=== PATIENT | female | born 1985 | race American Indian/Alaskan Native ===

== ENCOUNTER 2018-07-22 03:13 | Inpatient (IN) | payer SELFPAY ==
--- NOTE | 2018-07-22 03:23 | ED PDOC ---
Psych Transfer Clearance - Clearance Statement Clearance Statement: Reviewed vital signs, lab results and transfer papers. Patient clinically stable for psychiatric admission.
[2018-07-22 03:27] VITALS: O2SAT 99
[2018-07-22] MEDS ORDERED: Magnesium Hydroxide Susp 30 ml UD PO PRN (03:47)
[2018-07-22] MEDS ORDERED: Alum-Mag Hydrox-Simethicone Susp (30 mL) PO PRN (03:47)
[2018-07-22] MEDS ORDERED: DiphenhydrAMINE 50 mg/ml Inj IM PRN (03:47)
--- NOTE | 2018-07-22 04:15 | PCM.BM ---
<Sharmin Berman Joelle - Last Filed: 07/22/18 04:13> Treatment Plan Problems - Problems identified on initial assessmt delusions Date Initiated: 07/22/18 Time Initiated: 04:13 Assessment reference: NA Status: Active Altered sleep pattern Date Initiated: 07/22/18 Time Initiated: 04:14 Assessment reference: NA Status: Active Treatment assets and liabiliti Patient Assests: cooperative, educated, ADL independent, physically healthy, good support system, negotiates basic needs - Milieu Protocol Maintain good personal hygiene: daily Encourage regular showers, other Remind patient to perform daily oral care (prn), other Assist patient to perform ADL's (prn) Conduct patient checks and document Observation sheet: Q15 minutes Maintain personal safety: every shift Educate patient to report safety concerns to staff, every shift Monitor environment for contraband/sharps Medication safety: Monitor for expected outcome, potential side effects: every shift, Assess barriers to learning: every shift, Assess readiness for medication education: every shift <Daisy Lynne - Last Filed: 07/24/18 15:28> Treatment assets and liabiliti Patient Assests: adapts well, cooperative, educated (Pt. 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 ), resourceful, self-reliant, ADL independent, physically healthy, good support system (Pt. reports having a loving and supportive relationship with parents () and friends. ), cognitively intact, good interpersonal skills Patient Liabilities: live alone, relationship conflicts (Pt. reported returning from a trip to [place] on 07/01 and being unable to locate a man she had been casually dating. Pt. later informed that male had been incarcerated. This is identified as primary stressor.) Family Contact Family involvement: Family/SO is involved Family contact: Patient agrees to contact, Family has been contacted by patient, Telephone contact initiated by staff Family contact name: Ramses(father) [phone] Family contacted how many times per week?: 2 Family contact comment: Patients father left SW EM voicemail requesting clinical updates regarding pts progress on 3NP. [employer] returned call. [employer] assured pts father that video game script writer would contact him to discuss pts case in detail once initial assessment is completed. Pts father expressed concerns regarding pts reports that she will be discharged today and that medications have been changed since yesterday. [employer] provided general psychoeducation regarding nature of tx provided on a voluntary unit such as [facility] (medication management, groups, tx team, average length of stay, availability of 48hr notice, discharge planning). [employer] provided brief clinical updates regarding pts presentation on 3NP, general information regarding pts current medication regimen, and need for further stabilization. [employer]aler to continue to provide pts father with clinical updates through-out pts stabilization. - Goals for Treatment Patient goals for treatment: Patient to continue stabilization on 3NP through medication management and group/supportive therapy to address psychotic sxs as exhibited by paranoia, sleep disturbances, and delusional thought process . Patient to be encouraged to attend groups regularly to promote self-awareness, reality-testing, and improve insight, adherence,and coping skills. Patient to be provided with referral for appropriate level of aftercare to reduce risk of future hospitalizations and ensure safety in the community. Pt. identified addressing sxs of anxiety as primary tx goal. Pt. reported elimination of paranoia despite sxs of paranoia observed by staff. Discharge/Continuing Care - Education Needs Education Needs: Family Medication, Family Diagnosis/Disease Process, Family Community resources, Family Aftercare Safety Plan, Patient Medication, Patient Diagnosis/Disease Process, Patient Coping Skills, Patient Community resources, Patient Aftercare Safety Plan - Discharge Discharge Criteria: Tolerates medication w/o severe side effects, Free of paranoid thoughts, Free of agitation, Normal sleep pattern, Other (improvement in insight/judgement) Discharge to:: Home - Treatment Team Participation Patient/Family/SO Statement: 07/24/18 15:35 Patient attended tx team this morning to discuss progress on 3NP and tx goals. Insight into precursors to hospitalization, illness, and need for tx remains poor as exhibited by pt. refusing medications prior to tx team, belief that medications are unnecessary, identifying reason for hospitalization as appeasing parents concerns, and requesting to be discharged tonight. Pt. reported no longer feeling as though her family is in danger and was able to identify prior fears as paranoia. Pt. superficially pleasant. Pt. grandiose at times. Pt. denied SI/HI and was able to contract for safety on 3NP. Pt. continued to present with paranoia as exhibited by taking excessive notes regarding interactions with staff, questioning tx plan repeatedly prior to signing, and questioning tx recommendations. Tx team provided extensive psychoeducation regarding importance of proper stabilization through medication management and group/supportive therapy to improve functioning and ensure safety in the community and appropriate discharge planning to reduce risk of future hospitalizations. [employer] explained 48 hour notice, screening process, and possibility of involuntary commitment. Pt. expressed understanding and requested to sing 48 hour notice despite tx team expressing concerns regarding pts presentation. 48 hour notice was signed (expires 07/26 at 1130am). Pt awaiting screening for involuntary commitment. Discussed with Family/SO: Yes Was Patient/Family/SO present at Treatment Team Meeting: Yes <Shelley Estrada - Last Filed: 07/26/18 09:40> - Diagnosis (1) Psychosis Status: Acute Interventions: 07/26/18 09:40 start antipsychotic
--- NOTE | 2018-07-22 13:49 | PCM.PSYCH ---
Initial Psychiatric Evaluation - Initial Psychiatric Evaluation Type of Admission: Voluntary Legal Status: Capacity Chief Complaint (in patient's own words): I am worried about the loss of my friend History of Present Illness and Precipitating Events: pt is 32 ys old female no previous psychiatric diagnosis or treatment ,brought to ER by parents due to paranoid delusions with disorganized behaviour pt has been in a rip to [place], after returning at the end of June came to find that a male friend she has been in touch with for past ten years has disappeared and she is unable to contact, since then pt became increasingly anxious and paranoid, fearful that something bad will happen to her parents, believing that her family is being targeted by strangers and that others can read their text messages pt was taken to [facility] ER where she was increasingly paranoid tried to elope and had to be restrained on the unit pt is guarded paranoid suspicious towards staff, presenting with anxious mood and affect denied perceptual disturbances, denied active thoughts of self harm Current Medications: Active Medications Generic Name Dose Route Start Last Admin Trade Name Freq PRN Reason Stop Dose Admin Acetaminophen 650 mg 07/22/18 03:47 Tylenol 325mg Tab PO Q4 PRN pain 4-7 Al Hydrox/Mg Hydrox/Simethicone 30 ml 07/22/18 03:47 Maalox Plus 30 Ml PO Q4 PRN Dyspepsia Aripiprazole 2 mg 07/22/18 22:00 Abilify PO HS SALAZAR Diphenhydramine HCl 50 mg 07/22/18 03:47 Benadryl IM Q6 PRN Extrapyramidal S/S Unable PO Diphenhydramine HCl 50 mg 07/22/18 03:47 Benadryl PO Q6 PRN Extrapyramidal Symptoms Diphenhydramine HCl 50 mg 07/22/18 03:47 Benadryl PO HS PRN Sleep Escitalopram Oxalate 5 mg 07/22/18 22:00 Lexapro PO HS SALAZAR Haloperidol 5 mg 07/22/18 03:47 Haldol PO Q4 PRN Agitation Haloperidol Lactate 5 mg 07/22/18 03:47 Haldol IM Q4 PRN Agitation, Unable to Take PO Lorazepam 2 mg 07/22/18 03:47 Ativan IM Q6 PRN Anxiety/Agitation,Unable PO Lorazepam 2 mg 07/22/18 03:47 Ativan PO Q6 PRN Anxiety/Agitation Magnesium Hydroxide 30 ml 07/22/18 03:47 Milk Of Magnesia PO HS PRN Constipation Past Psychiatric History - Past Psychiatric History Explanation of prior treatment: pt reported seeing a therapist but currently not in therapy , no history of previous hospitalizations History of ETOH/Drug Use: denied History of Family Illness: denied Pertinent Medical Hx (Current Medical&Sleep Prob, Allergies): Allergies Allergy/AdvReac Type Severity Reaction Status Date / Time No Known Allergies Allergy Verified 07/22/18 03:15 Mental Status Examination - Personal Presentation Personal Presentation: Looks stated age - Affect Affect: Constricted - Motor Activity Motor Activity: Psychomotor Agitation - Reliability in Providing Information Reliability in Providing Information: Fair - Speech Speech: Relevant - Mood Mood: Anxious - Formal Thought Process Formal Thought Process: Delusions, Paranoia - Obsessions/Compulsions Obsessions: No Compulsions: No - Cognitive Functions Orientation: Person, Place, Situation Sensorium: Alert Attention/Concentration: Easily distracted Memory: Recent intact, as evidence by: Ability to recall events of the day - Risk Risk: Elopement, Diminished functioning - Strength & Assets Inventory Strength & Assets Inventory: Family support, Education DSM 5 DX - DSM 5 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
--- NOTE | 2018-07-22 13:56 | CP.PCM.CON ---
History of Present Illness - History of Present Illness History of Present Illness: Medicine Consult Medicine consult for 32 year old female with no PMH. Occasional constipation relieved with 1 cup of coffee and has had some weight loss over the last month which pt attributes to stress. She has no current complaints and denies PMH and medication use. PMD: denies Meds: denies PMH: denies OBHx: OCP d/c 1 week ago, menses normal 28 days regular blood loss, - elective x2, unknown yrs Fam Hx: Mother - GERD & psych, Father - denies Surgical Hx: breast augmentation 2012, no complications Review of Systems - Review of Systems Review of Systems: all other systems reviewed and negative unless noted in HPI Past Patient History - CARDIAC Hx Cardiac Disorders: No - PULMONARY Hx Respiratory Disorders: No - NEUROLOGICAL Hx Neurological Disorder: No - HEENT Hx HEENT Problems: No - RENAL Hx Chronic Kidney Disease: No - ENDOCRINE/METABOLIC Hx Endocrine Disorders: No - HEMATOLOGICAL/ONCOLOGICAL Hx Blood Disorders: No - INTEGUMENTARY Hx Dermatological Problems: No - MUSCULOSKELETAL/RHEUMATOLOGICAL Hx Musculoskeletal Disorders: No - GASTROINTESTINAL Hx Gastrointestinal Disorders: No - GENITOURINARY/GYNECOLOGICAL Hx Genitourinary Disorders: No - PSYCHIATRIC Hx Substance Use: No - SURGICAL HISTORY Other/Comment: breast reduction 2015 - ANESTHESIA Hx Anesthesia: Yes Hx Anesthesia Reactions: No Meds Allergies/Adverse Reactions: Allergies Allergy/AdvReac Type Severity Reaction Status Date / Time No Known Allergies Allergy Verified 07/22/18 03:15 - Medications Medications: Current Medications Acetaminophen (Tylenol 325mg Tab) 650 mg PO Q4 PRN PRN Reason: pain 4-7 Al Hydrox/Mg Hydrox/Simethicone (Maalox Plus 30 Ml) 30 ml PO Q4 PRN PRN Reason: Dyspepsia Aripiprazole (Abilify) 2 mg PO HS SALAZAR Diphenhydramine HCl (Benadryl) 50 mg IM Q6 PRN PRN Reason: Extrapyramidal S/S Unable PO Diphenhydramine HCl (Benadryl) 50 mg PO Q6 PRN PRN Reason: Extrapyramidal Symptoms Diphenhydramine HCl (Benadryl) 50 mg PO HS PRN PRN Reason: Sleep Escitalopram Oxalate (Lexapro) 5 mg PO HS SALAZAR Haloperidol (Haldol) 5 mg PO Q4 PRN PRN Reason: Agitation Haloperidol Lactate (Haldol) 5 mg IM Q4 PRN PRN Reason: Agitation, Unable to Take PO Lorazepam (Ativan) 2 mg IM Q6 PRN PRN Reason: Anxiety/Agitation,Unable PO Lorazepam (Ativan) 2 mg PO Q6 PRN PRN Reason: Anxiety/Agitation Magnesium Hydroxide (Milk Of Magnesia) 30 ml PO HS PRN PRN Reason: Constipation Physical Exam - Constitutional Appears: Non-toxic, No Acute Distress - Head Exam Head Exam: NORMAL INSPECTION - Eye Exam Eye Exam: Normal appearance - ENT Exam ENT Exam: Mucous Membranes Moist - Respiratory Exam Respiratory Exam: NORMAL BREATHING PATTERN. absent: Respiratory Distress - Cardiovascular Exam Cardiovascular Exam: REGULAR RHYTHM - GI/Abdominal Exam GI & Abdominal Exam: absent: Tenderness - Extremities Exam Extremities exam: Negative for: pedal edema - Neurological Exam Neurological exam: Alert, Normal Gait, Oriented x3 - Psychiatric Exam Psychiatric exam: Normal Affect, Normal Mood - Skin Skin Exam: Normal Color, Warm Results - Vital Signs Recent Vital Signs: Last Vital Signs Temp 98 F 07/22/18 03:15 Pulse 102 H 07/22/18 04:37 Resp 17 07/22/18 04:37 BP 90/67 L 07/22/18 03:15 Pulse Ox 99 07/22/18 03:15 Assessment & Plan - Assessment and Plan (Free Text) Assessment: Medicine consult for 32 year old female with no PMH evaluated in psych for medicine consult. Plan: Paranoid delusions with disorganized behaviour -management as per psych DVT prophylaxis -pt ambulates
[2018-07-23 08:48] LABS: HEMOGLOBIN 13.9 g/dL (12.0-16.0); MEAN CELL VOLUME 88.1 fl (81.0-99.0); MEAN CORPUSCULAR HGB CONC 32.9 g/dL (33.0-37.0); RBC 4.81 Mil/uL (3.80-5.20); RED CELL DISTRIBUTION WIDTH 13.6 % (11.5-14.5); WHITE BLOOD COUNT 5.7 K/uL (4.8-10.8)
[2018-07-23 09:08] LABS: BLOOD UREA NITROGEN 14 mg/dl (7-17); CALCIUM 9.4 mg/dL (8.4-10.2); GFR NON-AFRICAN AMERICAN > 60; HDL CHOLESTEROL 62 MG/DL (30-70)
[2018-07-23 09:20] LABS: LDL CHOLESTEROL 119 mg/dL (0-129)
--- NOTE | 2018-07-23 13:14 | PCM.PYCHPN ---
Psychiatric Progress Note - Psychiatric Progress Note Patient seen today, length of contact: pt evaluated discussed with team chart reviewed Patient Chief Complaint: I feel better because I saw my parents Problems Identified/Issues Discussed: pt evaluated and treatment plan discussed with mother upon patient consent , as per mother pt on her fourth day of vacation in [place] lost contact with a friend she was dating for few months, when she came back to [place] she came to know that he is locked up since then she started to act out of character became increasingly anxious, paranoid and worried about her family safety feeling that they are tracked and monitored by strangers pt on evaluation continues to be guarded and paranoid towards staff, presenting with labile affect, discussed increasing dose of abilify , no reported side effects, pt reported early insomnia, discussed starting trazadone pt denied command hallucinations denied thoughts of self harm Medical Problems: pt reported seeing a therapist but currently not in therapy , no history of previous hospitalizations DSM 5 Symptoms Update: brief psychotic disorder Medication Change: Yes (increase abilify ) Medical Record Reviewed: Yes Mental Status Examination - Cognitive Function Orientation: Person, Place, Situation Attention: WNL Concentration: Poor Association: WNL Fund of Knowledge: WNL Decription of patient's judgement and insights: partial insight fair judgment - Mood Mood: Anxious - Affect Affect: Constricted - Speech Speech: Appropriate - Formal Thought Process Formal Thought Process: Delusions, Paranoia - Suicidal Ideation Suicidal Ideation: No - Homicidal Ideation Homicidal Ideation: No Goal/Treatment Plan - Goal/Treatment Plan Need for Continued Stay: Remain at risks for inpatient hospitalization, Discharge may exacerbated symptoms Progress Toward Problem(s) and Goals/Treatment Plan: increase abilify 5mg daily discontinue lexapro start trazodone prn CBT and group therapy
--- NOTE | 2018-07-24 13:48 | PCM.PYCHPN ---
Psychiatric Progress Note - Psychiatric Progress Note Patient seen today, length of contact: pt evaluated discussed with team chart reviewed Patient Chief Complaint: I need to sign out of here Problems Identified/Issues Discussed: pt evaluated with treatment team, patient paranoid guarded evasive with delusions of persecution and grandiose delusions, pt has no insight into illness refusing medications, also signed 48 hour notice requesting to be discharged , continues to be guarded , evasive with labile affect , thought process is tangential , denied command hallucinations Medical Problems: pt reported seeing a therapist but currently not in therapy , no history of previous hospitalizations DSM 5 Symptoms Update: brief psychotic disorder rule out bipolar I disorder MRE manic severe with psychotic features Medication Change: No (increase abilify ) Medical Record Reviewed: Yes Mental Status Examination - Cognitive Function Orientation: Person, Place, Situation Attention: WNL Concentration: Poor Association: WNL Fund of Knowledge: WNL Decription of patient's judgement and insights: partial insight fair judgment - Mood Mood: Anxious - Affect Additional comments: labile - Speech Speech: Appropriate - Formal Thought Process Formal Thought Process: Delusions, Paranoia - Suicidal Ideation Suicidal Ideation: No - Homicidal Ideation Homicidal Ideation: No Goal/Treatment Plan - Goal/Treatment Plan Need for Continued Stay: Remain at risks for inpatient hospitalization, Discharge may exacerbated symptoms Progress Toward Problem(s) and Goals/Treatment Plan: pt refusing medications, continues to be paranoid with grandiose delusions and tangential thought process, signed 48 hour notice requesting to be discharged, pt will be referred for screening for involuntary admission for continuity of care abilify 5mg daily start trazodone prn CBT and group therapy
[2018-07-25 09:25] VITALS: TEMP 98.8
--- NOTE | 2018-07-25 16:12 | PCM.PYCHPN ---
Psychiatric Progress Note - Psychiatric Progress Note Patient seen today, length of contact: pt evaluated discussed with team chart reviewed Patient Chief Complaint: pt reports was feeling down and a little nervous upon admission. pt was [place] [facility] [place] and found not to meed involuntary committment. pt is verbally agreeable to remain inpt until meeting with treatment team in am. staff report pt has been seen about unit. Problems Identified/Issues Discussed: alteration in mood alteration in coping Medical Problems: per chart Diagnostic Results: per psychiatry, per medicine, per nursing, per social work, per recreational therapy DSM 5 Symptoms Update: somewhat improved mood Medication Change: No Medical Record Reviewed: Yes Consults ordered or reviewed: pt being followed by medical team Mental Status Examination - Cognitive Function Orientation: Person, Place, Situation Attention: WNL Concentration: Poor Association: WNL Fund of Knowledge: WNL Decription of patient's judgement and insights: some impaired - Mood Mood: Anxious - Affect Affect: Constricted - Speech Speech: Appropriate - Suicidal Ideation Suicidal Ideation: No - Homicidal Ideation Homicidal Ideation: No Goal/Treatment Plan - Goal/Treatment Plan Need for Continued Stay: Remain at risks for inpatient hospitalization, Discharge may exacerbated symptoms Progress Toward Problem(s) and Goals/Treatment Plan: pt to remain inpt until meeting with treatment team in am pt verbally agreeable to said pt has been screened [place] [facility] [place] and not deemed to have met involuntary admission criteria pt verbally agreeable to remain in pt until am to discuss possbile follow up care discharge planning in progress Estimated Date of D/C: 07/26/18 - Smoking Cessation Smoking Cessation Initiated: No Reason for not providing: defers
[2018-07-26 09:10] VITALS: BP 106/73; PULSE 77; RESP 18
--- NOTE | 2018-07-26 14:57 | PCM.PYCHDC ---
Mental Status Examination - Mental Status Examination Orientation: Person, Place, Situation Memory: Intact Mood: Neutral Affect: Broad Speech: Appropriate Attention: WNL Concentration: WNL Association: WNL Fund of Knowledge: WNL Formal Thought Process: No Impairment Description of patient's judgement and insight: partial insight fair judgment Psychotic Thoughts and Behaviors: pt on discharge denied psychotic symptoms, non were elicited Suicidal Ideation: No Current Homicidal Ideation?: No Discharge Summary - Discharge Note Reason for Hospitalization: pt is 32 ys old female no previous psychiatric diagnosis or treatment ,brought to ER by parents due to paranoid delusions with disorganized behaviour pt has been in a rip to [place], after returning at the end of June came to find that a male friend she has been in touch with for past ten years has disappeared and she is unable to contact, since then pt became increasingly anxious and paranoid, fearful that something bad will happen to her parents, believing that her family is being targeted by strangers and that others can read their text messages pt was taken to [facility] ER where she was increasingly paranoid tried to elope and had to be restrained on the unit pt is guarded paranoid suspicious towards staff, presenting with anxious mood and affect denied perceptual disturbances, denied active thoughts of self harm Consultations:: List each consultation separately and include: 1. Reason for request. 2. Findings. 3. Follow-up Summary of Hospital Course include:: 1. Description of specific treatment plan utilized for patients during their course of treatmen. 2. Summarize the time-course for resolution of acute symptoms and/or regressed behaviors. 3. Describe issues identified and worked on during hospitalization. 4. Describe medication utilized. 5. Describe medical problems identified and treated. 6. Reassessment of suicide risk Summary of Hospital Course: pt on admission was guarded evasive and paranoid, pt was started on abilify 2mg it was gradually increased to 5mg treatment plan discussed with family upon pt consent , pt signed 48 hour notice but was compliant with treatment attended groups, no reported side effects of medications, showing improvement with clearing off of the paranoid delusions on discharge pt mental status was stable denied any current suicidal or homicidal ideation denied perceptual disturbances - Diagnosis (1) Psychosis Status: Acute - Final Diagnosis (DSM 5) Condition upon Discharge: STABLE DSM 5: brief psychotic disorder Disposition: HOME/ ROUTINE Follow-up Treatment Plan: pt refusing medications, continues to be paranoid with grandiose delusions and tangential thought process, signed 48 hour notice requesting to be discharged, pt will be referred for screening for involuntary admission for continuity of care abilify 5mg daily start trazodone prn CBT and group therapy Prescriptions/Medication Reconciliation: ARIPiprazole [Abilify] 5 mg PO DAILY 30 Days #30 tab traZODone [Desyrel] 50 mg PO HS PRN 30 Days #30 tab PRN Reason: Insomnia - Antipsychotic Medications Pt discharged on 2 or more routine antipsychotic medications: No
== END 2018-07-26 14:31 | disposition home or self-care (01) | DRG 885 ==
LOC: H.ER 03:13 → H.PSYCH 03:22
PROVIDERS: ADMIT Psychiatry & Neurology Psychiatry; ATTEND Psychiatry & Neurology Psychiatry
PROC: GZHZZZZ Group Psychotherapy (ICD-10-PCS; principal; 2018-07-22)
PROC: GZ58ZZZ Individual Psychotherapy, Cognitive-Behavioral (ICD-10-PCS; 2018-07-22)
DX: F23 Brief psychotic disorder (principal); F43.23 Adjustment disorder with mixed anxiety and depressed mood; K59.00 Constipation, unspecified